=== PATIENT | male | born 1970 | race Caucasian/White ===

== ENCOUNTER → 2016-07-24 | Outpatient (CLI) | payer BC ==
[2016-07-24 10:52] LABS: BASO % 0.5 %; BASO ABS # 0.03 K/uL (0-0.2); COMPLETE YES; HEMATOCRIT 44.5 % (42-52); IG% 0.2 %; LYMPH % 30.4 %; LYMPH ABS # 1.83 K/uL (1.2-3.4); MEAN CELL VOLUME 87.1 fL (80-100); MEAN CORPUSCULAR HEMOGLOBIN 29.2 pg (25-34); MEAN CORPUSCULAR HGB CONC 33.5 g/dl (32-36); MEAN PLATELET VOLUME 9.4 fL (7.4-10.4); MONO % 10.8 %; NEUT % 56.1 %; PLATELET COUNT 286 K/uL (130-400); RED BLOOD COUNT 5.11 M/uL (4.7-6.1); WHITE BLOOD COUNT 6.01 K/uL (4.8-10.8)
[2016-07-24 13:38] LABS: ALT/SGPT 48 U/L (12-78); AST/SGOT 23 U/L (15-37); BLOOD UREA NITROGEN 14 mg/dl (7-18); BUN/CREATININE RATIO 17.9 (10-20); CALCIUM 8.8 mg/dl (8.5-10.1); CARBON DIOXIDE 32 mmol/L (21-32); CHLORIDE 104 mmol/L (98-107); CREATININE 0.81 mg/dl (0.60-1.40); GLUCOSE 99 mg/dl (70-99); POTASSIUM 3.8 mmol/L (3.5-5.1); SODIUM 142 mmol/L (136-145)
[2016-07-24 13:42] LABS: ALB/GLOB RATIO 1.2 (0.9-2); ALKALINE PHOSPHATASE 82 U/L (45-117); CHOLESTEROL 222 mg/dl (0-200); HDL CHOLESTEROL 55 mg/dl; LDL CHOLESTEROL CALCULATED 138 mg/dl; TRIGLYCERIDES 147 mg/dl (0-150); VERY LOW DENSITY LIPOPROT CALC 29 mg/dl
== END | disposition home or self-care (01) ==
LOC: C.LABBC 09:17
PROVIDERS: ATTEND Internal Medicine
DX: Z00.00 Encounter for general adult medical examination without abnormal findings (principal)

== ENCOUNTER → 2017-08-31 | Outpatient (CLI) | payer OTHER ==
--- NOTE | 2017-08-31 17:55 | DIAGNOSTIC IMAGING REPORT ---
L LOWER EXT JOINT WITHOUT CLINICAL HISTORY: L KNEE PAIN pain TECHNIQUE: Multiaxial MRI acquisition COMPARISON STUDY: None FINDINGS: Signal characteristics of the osseous structures are unremarkable. There are degenerative changes of the articular services of the medial femoral condyle with a least partial articular surface loss at its posterior aspect. The patellofemoral articular services in general is intact. As a slight degree of matrix deterioration with a small focal tear of the mid medial patellar articulating surface with several frayed fragments best seen transaxial image 13 of 30. The medial and lateral patellar retinaculum is intact. There is a small joint effusion. Medial and lateral collateral ligaments are intact. Anterior and posterior cruciate ligaments are normal. The lateral meniscus is normal in signal character as well as configuration. The medial meniscus shows considerable meniscal substance loss at its mid and posterior aspect. This consistent with tearing of the meniscus with displacement of components of the loose meniscus to the region of the intercondylar notch. The anterior horn appears to be generally intact with mild surface deterioration. IMPRESSION: 1. Tear medial meniscus at its mid to posterior aspect with evidence for a displaced meniscal component to the intercondylar notch region. 2. Deterioration and partial articular surface loss/deterioration posterior aspect medial femoral condyle. 3. 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 4. Small joint effusion. The above report was generated using voice recognition software. It may contain grammatical, syntax or spelling errors. Electronically signed by: Pete Chatman M.D. 08/31/2017 5:54 PM Dictated Date/Time: 08/31/2017 5:46 PM
== END | disposition home or self-care (01) ==
LOC: C.MRI 16:03
PROVIDERS: ATTEND Physician Assistant
DX: S83.242A Other tear of medial meniscus, current injury, left knee, initial encounter (principal); M85.862 Other specified disorders of bone density and structure, left lower leg; M22.42 Chondromalacia patellae, left knee; M25.462 Effusion, left knee; X58.XXXA Exposure to other specified factors, initial encounter